=== PATIENT | male | born 1950 | race Caucasian/White ===

== ENCOUNTER → 2017-01-30 | Outpatient (CLI) | payer OTHER, BC | LOC: MMPC 09:00 | PROVIDERS: ATTEND Family Medicine | DX: R79.0 Abnormal level of blood mineral (principal); I25.10 Atherosclerotic heart disease of native coronary artery without angina pectoris; E87.6 Hypokalemia; C22.0 Liver cell carcinoma | CPT/HCPCS: 99213; G0463 ==

== ENCOUNTER → 2017-03-25 | Outpatient (CLI) | payer OTHER, BC ==
[2017-03-25 09:13] LABS: BASOPHILS # (AUTO) 0.03 10*3/UL; BASOPHILS % (AUTO) 0.4 % (0-1); EOSINOPHILS # (AUTO) 0.52 10*3/UL; EOSINOPHILS % (AUTO) 6.2 % (0-8); HEMATOCRIT 47.8 % (42.0-52.0); HEMOGLOBIN 16.6 g/dL (14.0-18.0); LYMPHOCYTES # (AUTO) 2.97 10*3/uL; MEAN CORPUSCULAR HEMOGLOBIN 34.3 PG (27-31); MEAN CORPUSCULAR HGB CONC 34.7 g/dL (33-37); MEAN CORPUSCULAR VOLUME 98.8 FL (80-90); MEAN PLATELET VOLUME 9.3 FL (7.4-12.2); MONOCYTES # (AUTO) 0.76 10*3/UL (0.3-0.8); NEUTROPHILS % (AUTO) 48.8 % (50-80); RED BLOOD COUNT 4.84 10^6/uL (4.70-6.10)
[2017-03-25 09:18] LABS: PLATELET MORPHOLOGY COMMENT NORMAL MORPHOLOGY (NORM); RBC MORPHOLOGY COMMENT NORMAL MORPHOLOGY (NORM); WBC MORPHOLOGY COMMENT NORMAL MORPHOLOGY (NORM)
[2017-03-25 09:20] LABS: BLOOD UREA NITROGEN 18 mg/dL (7-22); CALCIUM 8.8 mg/dL (8.7-10.7); EST GLOMERULAR FILTRATION > 60 (>60 ml/min/1.73m(2)); SERUM ALBUMIN 4.3 g/dL (3.5-4.8)
--- NOTE | 2017-03-25 11:06 | DI ---
CT CHEST SCAN WITH IV CONTRAST, 03/25/2017 8:57 AM : Clinical History: C. 22.0. Liver cell carcinoma. Previous Exam: None at this facility. Scans are performed from the base of the neck to the level of the adrenal glands with contrast. 95 ml of Isovue 300 was injected IV. The base of the neck and thoracic inlet are normal. There are no abnormal axillary, supraclavicular, mediastinal, or hilar nodes. The heart is normal. Coronary artery calcifications are present in the p roximal and middle thirds of the LAD and in the proximal portions of the left circumflex artery and t he right coronary artery. There is no acute infiltrate or effusion. There are 4 mm noncalcified nodul es located in the anterior segment of the right upper lobe anteriorly, the superior segment of the ri ght lower lobe near the junction with the horizontal fissure, and in the left lower lobe probably in the posterior basal segment abutting the diaphragm. There is a 4 plaque-like nodular lesion in the of the right upper lobe contiguous with the anterior margin of the horizontal fissure. This plaque-like lesion measures 12 x 6 x 2 mm in the AP, transverse, and longitudinal dimensions. This may represent an inflammatory plaque. READIN. There are 3 separate 4 mm noncalcified nodules. There is one located in the anterior segment of t he right upper lobe anteriorly, another in the superior segment of the right lower lobe at the juncti on with the horizontal fissure, and the third is located in the posterior basal segment of the left l ower lobe just above the diaphragm. There is a fourth lesion that has a plaque-like appearance that i s contiguous with the horizontal fissure on the side of the anterior segment of the right upper lobe measuring 12 x 6 x 2 mm. 2. The remainder of the exam is unremarkable except for presence of coronary artery calcifications i n all 3 major branches.
--- NOTE | 2017-03-25 11:40 | DI ---
CT ABDOMEN SCAN WITH IV CONTRAST, 03/25/2017 9:00 AM : Clinical History: C22.0. Hepatocellular carcinoma. Previous Exam: None at this facility. Scans are performed from the lower lung bases through the liver and kidneys with IV contrast. This is the same bolus of contrast used for the CT scan of the chest. The lung bases are clear. In the subcapsular portion of the medial margin of the left lobe liver, the re is an ovoid low-density lesion that measures 30 x 12 x 20 mm in AP, transverse, and longitudinal d imensions. This lesion is visible although not as well defined on the CT scans of the chest during th e early arterial phase. The remainder of the liver is normal. The patient is status post cholecystect thania. There is no abnormality of the spleen, pancreas, and adrenal glands. Both kidneys are normal in size, shape, position and contour. There is no hydronephrosis or hydroureter. No renal or ureteral ca lculi are present. There are no abnormal retrocrural or periaortic nodes. No ascites is present. READIN. There is a 32 x 12 x 20 mm low-density lesion located in the medial margin of the left lobe of th e liver deep to the liver capsule. This may represent a primary tumor although the configuration and sharply defined contour is unusual. Comparison with previous exams would be helpful if they are avail able. Liver ultrasound may also be of help. The remainder of the liver is unremarkable and does not s how definite evidence of cirrhosis. 2. The remainder of the examination is normal. CT PELVIS SCAN WITH IV CONTRAST, 03/25/2017 9:00 AM: Clinical History: See above. Previous Exam: None at this facility. Scans are performed from just superior to the umbilicus to the symphysis pubis with IV contrast. This is the same bolus of contrast used for the CT scans of the abdomen. Scans through the lower abdomen and pelvis show no masses or abnormal fluid collections. There is no adenopathy. The appendix is not identified with certainty but there is no inflammatory mass either in the cecum or in the right lower quadrant. The small bowel, terminal ileum, and ileocecal valve are n ormal. The colon is also normal. There are no hernias. READING: Normal CT scan of the pelvis.
== END ==
LOC: CT 08:44
PROVIDERS: ATTEND Internal Medicine
DX: C22.0 Liver cell carcinoma (principal); E83.42 Hypomagnesemia
CPT/HCPCS: 36415; 71260; 74177; 80053; 82105; 83735; 85025